=== PATIENT | female | born 1985 | race Hispanic/Latino ===

== ENCOUNTER 2022-05-30 19:50 | Emergency (ER) | payer BC, SELFPAY ==
[2022-05-30] MEDS ORDERED: Acetaminophen 500 MG TAB ONE (20:53)
[2022-05-30 21:30] LABS: SARS-CoV-2 NAA Rapid Test Not Detected (NotDetected)
== END 2022-05-30 22:28 | disposition home or self-care (01) ==
LOC: CSHERS 19:50
DX: B34.9 Viral infection, unspecified (principal); Z20.822 Contact with and (suspected) exposure to COVID-19
CPT/HCPCS: 93005

== ENCOUNTER 2024-05-01 23:25 | Emergency (ER) | payer SELFPAY ==
[2024-05-02] MEDS ORDERED: Ketorolac Tromethamine 30 MG (1 mL) VIAL ONE (00:41)
== END 2024-05-02 01:32 | disposition home or self-care (01) ==
LOC: CSHERS 23:25
DX: S30.0XXA Contusion of lower back and pelvis, initial encounter (principal); S80.811A Abrasion, right lower leg, initial encounter; Z55.6 Problems related to health literacy; W06.XXXA Fall from bed, initial encounter
CPT/HCPCS: 72170; 72220; 96372; J1885